=== PATIENT | female | born 1985 | race Caucasian/White ===

== ENCOUNTER 2018-03-01 12:17 | Emergency (ER) | payer OTHER ==
--- NOTE | 2018-03-01 13:58 | RAD ---
HISTORY: 15wks, spotting, gestational age by dates of 15 weeks and 5 days COMPARISONS: None TECHNIQUE: Multiple transverse and longitudinal ultrasound images were obtained of the pelvis using grayscale, color Doppler, and M-Mode Doppler imaging using the transabdominal transducer. FINDINGS: UTERUS: The uterus is normal in shape, size, contour, and echotexture. GESTATION: There is a single live intrauterine gestation. The crown-rump length measures 5.74 cm for a gestational age of 12 weeks, 3 days. The KATHE is September 10, 2018. This is discordant with the age by dates.. cardiac motion is detected at a rate of 161 beats per minute. Gross movement is identified. anatomy cannot be assessed secondary to early dates. The amniotic fluid is qualitatively normal. There are no retroplacental fluid collections. CUL-DE-SAC: There is no free fluid within the cul-de-sac. RIGHT OVARY: The right ovary is not well-visualized. LEFT OVARY: The left ovary is not well visualized. BLADDER: The bladder is not well visualized. IMPRESSION: SINGLE LIVE INTRAUTERINE GESTATION AT 12 WEEKS, 3 DAYS BY CROWN-RUMP LENGTH. THIS IS DISCORDANT WITH THE AGE BY DATES.
--- NOTE | 2018-03-01 15:30 | ED ---
GI/ HPI - HPI Summary HPI Summary: (1 miscarriage) 15 week pt presents with "spotting" on toilet paper only with wiping (pink tinged) and mild dysuria this morning. She admits she had some mild lower pelvic cramping earlier today as well however no pain at this time and cramping could have been normal cramping - difficult to discern. She denies spotting into undergarments and no vaginal d/c or bleeding otherwise. Denies fever, chills, N/V/D, ab pain, flank pain, chest pain , SOB, [place] - no contractions. She reports she may have a UTI as she's had a couple of these in the past and this feels similar. No h/o renal stones, pyelonephritis. Miscarriage took place after TVUS at 8 weeks. Other 3 pregnancies were FT and w/ o complications. She is here visiting her father from [place] over the past 30 days - she was seen by OB prior to leaving and has recorded hcg to confirm - no u/s for this yet - wanted to wait d/t events that occurred last time as mentioned above. - History of Current Complaint Chief Complaint: EDOBProblems Time Seen by Provider: 03/01/18 15:16 Stated Complaint: 15 WEEKS PREGNENT W/ SPOTTING Hx Obtained From: Patient, Family/District Court Bailiff - father Pain Intensity: 0 - Allergy/Home Medications Allergies/Adverse Reactions: Allergies Allergy/AdvReac Type Severity Reaction Status Date / Time No Known Allergies Allergy Verified 03/01/18 12:29 Home Medications: Home Medications NK [No Home Medications Reported] 03/01/18 [History Confirmed 03/01/18] PMH/Surg Hx/FS Hx/Imm Hx Previously Healthy: Yes Endocrine/Hematology History: Denies: Hx Anticoagulant Therapy, Hx Blood Disorders, Hx Thyroid Disease, Hx Anemia, Autoimmune Disease History: Reports: Other Problems/Disorders - UTI x 3 in lifetime - non complicated Denies: Hx Kidney Infection, Hx Kidney Stones Infectious Disease History: No Infectious Disease History: Denies: Traveled Outside the [place] in Last 30 Days - Family History Known Family History: Positive: Other - [place] father - Social History Occupation: Employed Full-time - maintenance dispatcher Lives: With Family - from [place] but staying with dad past 30 days as he undergoes [place] tx Alcohol Use: None Hx Substance Use: No Substance Use Type: Reports: None Hx Tobacco Use: No Smoking Status (MU): Never Smoked Tobacco Review of Systems Constitutional: Negative Negative: Fever, Chills, Fatigue Cardiovascular: Negative Respiratory: Negative Gastrointestinal: Negative Negative: Abdominal Pain, Vomiting, Diarrhea, Nausea Positive: see HPI Musculoskeletal: Negative Skin: Negative Neurological: Negative Psychological: Normal All Other Systems Reviewed And Are Negative: Yes Physical Exam Triage Information Reviewed: Yes Vital Signs On Initial Exam: Initial Vitals Temp Pulse Resp BP Pulse Ox 97.8 F 90 17 140/77 100 03/01/18 12:25 03/01/18 12:25 03/01/18 12:25 03/01/18 12:25 03/01/18 12:25 Vital Signs Reviewed: Yes Appearance: Positive: Well-Appearing, No Pain Distress, Well-Nourished Skin: Positive: Warm, Skin Color Reflects Adequate Perfusion, Dry Head/Face: Positive: Normal Head/Face Inspection Eyes: Positive: Normal, EOMI, Conjunctiva Clear - anicteric sclera ENT: Positive: Normal ENT inspection, Hearing grossly normal, Pharynx normal - mucosa moist Respiratory/Lung Sounds: Positive: Clear to Auscultation, Breath Sounds Present Cardiovascular: Positive: Normal, RRR Abdomen Description: Positive: Nontender, Soft. Negative: CVA Tenderness (R), CVA Tenderness (L) Bowel Sounds: Positive: Present Pelvic Exam: Positive: Other - deferred Musculoskeletal: Positive: Normal, Strength/ROM Intact Neurological: Positive: Normal, Sensory/Motor Intact, Alert, Oriented to Person Place, Time, CN Intact II-III Psychiatric: Positive: Normal Diagnostics - Vital Signs Vital Signs Temp Pulse Resp BP Pulse Ox 03/01/18 14:28 96.1 F 81 17 125/80 100 03/01/18 12:25 97.8 F 90 17 140/77 100 - Laboratory Lab Results: Lab Results 03/01/18 Range/Units 14:24 Beta HCG, Quant [id number] mIU/mL Lab Statement: Any lab studies that have been ordered have been reviewed, and results considered in the medical decision making process. GIGU Course/Dx - Course Course Of Treatment: U/S w/o acute findings (ie. no placenta previa, etc) - single IUP, FHR 160's. Vitals are WNL. U/A reveals ketones, leuk's, WBC's and squamos cell - will tx for UTI as she is officially in her 2nd trimester and has (mild) sx of UTI. Cx will be completed and pt called if change in medication is necessary. Reviewed danger s/sx of when to return to ED. - Diagnoses Provider Diagnoses: UTI (urinary tract infection) Discharge - Sign-Out/Discharge Documenting (check all that apply): Patient Departure - Discharge Plan Condition: Stable Disposition: HOME Patient Education Materials: (ED), Urinary Tract Infection in Women ( ED) Referrals: Linh Blevins MD [Medical Doctor] - Additional Instructions: While here, you may follow-up with OBGYN as needed (contact information provided here) *If you develop vaginal bleeding, cramping, fever, chills, flank pain, abdominal pain, vomiting, diarrhea, return to ED - Billing Disposition and Condition Condition: STABLE Disposition: Home
[2018-03-01 16:20] LABS: Urine Appearance Cloudy; Urine Blood Negative (Negative); Urine Color Yellow; Urine Ketones 1+ (Negative); Urine Protein Negative (Negative); Urine Red Blood Cell Absent (Absent); Urine Specific Gravity 1.018 (1.010-1.030); Urine Urobilinogen Negative (Negative); Urine White Blood Cell 1+(6-10/hpf) (Absent)
[2018-03-01 17:00] VITALS: BP 122/72
== END 2018-03-01 16:58 | disposition home or self-care (01) ==
LOC: ED 12:17
DX: O23.42 Unspecified infection of urinary tract in pregnancy, second trimester (principal); Z3A.15 15 weeks gestation of pregnancy
CPT/HCPCS: 36415; 76815; 81003; 81015; 84702; 86900; 86901; 87086; 99282